=== PATIENT | female | born 1960 | race Caucasian/White ===

== ENCOUNTER → 2024-02-21 | Emergency (ER) | payer MEDICAID ==
[~2024-02-21] VITALS: Ht 162.6 cm; Wt 76.3 kg
[~2024-02-21] MED LIST: ALBU8HFA PO; DOXY-243 PO; FLUT1BLS4 INH; GUAI600T45 PO; INHA1SPA48 INH; NO HOME MEDS; PHEN-786 PO
[2024-02-21 13:02] VITALS: BP 139/85; PULSE 88; RESP 16; TEMP 98.7; O2SAT 95
== END | disposition home or self-care (01) ==
LOC: ER 12:51
DX: J20.9 Acute bronchitis, unspecified (principal); F17.200 Nicotine dependence, unspecified, uncomplicated; Z79.899 Other long term (current) drug therapy; Z20.822 Contact with and (suspected) exposure to COVID-19
CPT/HCPCS: 36415; 71045; 87502; 87503; 87811; 99284